=== PATIENT | male | born 1995 | race African-American/Black ===

== ENCOUNTER 2020-12-03 15:04 | Emergency (ER) | payer OTHER ==
[~2020-12-03 15:04] MED LIST: BACTRIM DS TAB1 EACH PO; KEFLEX250 MG PO
[2020-12-03] MEDS ORDERED: ZOFRAN4 M1 PO (16:51)
== END 2020-12-03 17:00 | disposition home or self-care (01) ==
LOC: FER 15:04
DX: J02.9 Acute pharyngitis, unspecified (principal); I10 Essential (primary) hypertension; F17.210 Nicotine dependence, cigarettes, uncomplicated
CPT/HCPCS: 99283

== ENCOUNTER 2021-01-07 14:24 | Emergency (ER) | payer OTHER ==
[~2021-01-07 14:24] MED LIST changes: +ZOFRAN4 M1 PO
== END 2021-01-07 16:22 | disposition home or self-care (01) ==
LOC: FER 14:24
DX: S61.211A Laceration without foreign body of left index finger without damage to nail, initial encounter (principal); F17.200 Nicotine dependence, unspecified, uncomplicated; Z23 Encounter for immunization; W26.8XXA Contact with other sharp object(s), not elsewhere classified, initial encounter; Y92.89 Other specified places as the place of occurrence of the external cause; Y99.0 Civilian activity done for income or pay
CPT/HCPCS: 90471; 90715

== ENCOUNTER 2021-04-12 09:12 | Emergency (ER) | payer OTHER ==
[~2021-04-12] VITALS: Ht 180.3 cm; Wt 72.6 kg
[2021-04-12 10:42] LABS: CORONAVIRUS 2019 SARS-COV-2 POSITIVE (NEGATIVE); INFLUENZA A NAA NEGATIVE (NEGATIVE)
== END 2021-04-12 11:27 | disposition home or self-care (01) ==
LOC: FER 09:12
PROVIDERS: Internal Medicine
DX: U07.1 COVID-19 (principal); F17.200 Nicotine dependence, unspecified, uncomplicated
CPT/HCPCS: 71045; U0002

== ENCOUNTER 2021-05-19 12:43 | Emergency (ER) | payer OTHER ==
[2021-05-19] MEDS ORDERED: MEDROL 4MG DOSEP4 MG PO (15:15)
[2021-05-19] MEDS ORDERED: AMOXICILLIN500 M2 PO (15:15)
[2021-05-19] MEDS ORDERED: VENTOLIN HFA IN18 GM INH (15:15)
== END 2021-05-19 15:20 | disposition home or self-care (01) ==
LOC: FER 12:43
DX: J06.9 Acute upper respiratory infection, unspecified (principal)
CPT/HCPCS: 71045; 99283; J1100

== ENCOUNTER 2021-08-09 13:49 | Emergency (ER) | payer OTHER ==
[~2021-08-09 13:49] MED LIST changes: +AMOXICILLIN500 M2 PO; +MEDROL 4MG DOSEP4 MG PO; +VENTOLIN HFA IN18 GM INH
[2021-08-09 15:08] LABS: BASOPHIL 0.5 % (0-2); EOSINOPHIL 0.8 % (0-5); HCT 42.3 % (42.0-52.0); HGB 15.8 g/dl (13.2-18.0); LYMPHOCYTE 44.7 % (15-48); MCH 31.3 pg (25.0-31.0); MCHC 37.4 g/dL (32.0-36.0); MCV 83.8 fL (78.0-100.0); MONOCYTE 8.6 % (0-12); MPV 9.6 fL (6.0-9.5); NEUTROPHIL 45.1 % (41-80); NRBC 0; PLT 268 K/uL (150-400); RBC 5.05 M/uL (4.70-6.00); RDW 12.2 % (11.5-14.0)
[2021-08-09 15:11] LABS: MONOSPOT (MONONUCLEOSIS) NEGATIVE (NEGATIVE)
[2021-08-09 15:12] LABS: WBC 10.3 K/uL (4.0-10.5)
[2021-08-09 15:18] LABS: ALBUMIN 4.3 g/dL (3.4-5.0); BILIRUBIN - TOTAL 0.6 mg/dL (0.2-1.0); BUN/CREAT RATIO (CALC) 6.3 RATIO; CREATININE 0.95 mg/dL (0.67-1.17); GLOBULIN (CALCULATION) 3.5 g/dL; POTASSIUM 3.4 mmol/L (3.5-5.1); TOTAL PROTEIN 7.8 g/dL (6.4-8.2)
== END 2021-08-09 17:22 | disposition home or self-care (01) ==
LOC: FER 13:49
PROVIDERS: Emergency Medicine
DX: M27.8 Other specified diseases of jaws (principal); R59.0 Localized enlarged lymph nodes
CPT/HCPCS: 36415; 70491; 71260; 80053; 82150; 84145; 85025; 86308; J7030; Q9967